=== PATIENT | female | born 1940 | race Caucasian/White ===

== ENCOUNTER 2016-07-23 10:35 | Emergency (ER) | payer MEDICARE, MEDICAID ==
[2016-07-23 10:52] VITALS: TEMP 95.8
[2016-07-23] MEDS ORDERED: SODIUM CHLORIDE 0.9% 1000ML 500 ML IVS ONE (10:57)
--- NOTE | 2016-07-23 12:52 | CT ---
EXAM DESCRIPTION: CT ABDOMEN PELVIS WITH IV CONTRAST CLINICAL HISTORY: gi bleed, rlq pain mild, known hernias COMPARISON: December 16, 2015 TECHNIQUE: CT of the abdomen and Pelvis was performed with IV contrast. FINDINGS: There is a small 3 or 4 mm noncalcified nodule in the right middle lobe, only partially visualized on the 1st image of this exam period the lung bases are otherwise unremarkable period there is a moderate to large sized hiatal hernia without acute complication, unchanged from the patient's previous CT. No gastric wall thickening or adjacent inflammation period no calcified gallstone. No dilated small bowel loops period there is a fat containing midline anterior abdominal wall hernia at or near the level of the umbilicus. The hernia sac measures 7 cm transverse diameter, and the hernia defect measures 2.2 cm transverse diameter. There is some mild inflammation or scarring involving herniated fat, but this is unchanged from the patient's previous CT. No herniated bowel loops are identified. There is no new hernia. Colonic diverticulosis is noted without diverticulitis. No calcified gallstone period there are few small round low-density liver lesions which are too small to characterize but likely represent cysts. The liver, spleen, pancreas, adrenals and kidneys are otherwise unremarkable period no suspicious bone lesion period IMPRESSION: Colonic diverticulosis, but no diverticulitis or other acute abnormality to explain patient's symptoms. Hiatal and midline anterior abdominal wall hernias as detailed above, stable from November,. Three or 4 mm noncalcified right middle lobe nodule only partially visualized. Nonemergent chest CT is suggested for further evaluation. Electronically signed by: Herb Peters DO 07/23/2016 12:50
--- NOTE | 2016-07-23 13:22 | ED.PDOC ---
History of Present Illness - General Chief Complaint: GI Problem Stated Complaint: rectal bleeding Time Seen by Provider: 07/23/16 10:46 Source: patient Exam Limitations: no limitations - History of Present Illness Initial Comments: the patient is a 76-year-old female presenting to the emergency room several hours after having had 3 bloody bowel movements. The first bowel movement had some solid stool with blood in it and the following bowel movements were apparently mainly liquid with just blood. Estimated blood loss is somewhere between 50 and 200 cc. The patient did not have any pain with the bowel movements. She has not had any hemorrhoids. The patient did get weak and diaphoretic and near syncopal that but did not pass out. She does feel weak now. No chest pain or palpitations. She apparently had a similar episode back in November 2015 and was scheduled to have a lower endoscopy with Dr. Staton , but was unable to complete the bowel prep due to nausea and vomiting and has not had that done. She has apparently not had any GI bleeding since that time until this morning. No injury yesterday. She denies being on any blood thinners with the exception of aspirin. No history of any bleeding disorders otherwise. On exam today she does have some mild right lower quadrant discomfort to palpation but not markedly. She reports her only abdominal surgery is a tubal ligation. She does have an umbilical hernia as well as a superior ventral hernia, neither of which are painful.. Timing/Duration: 4-6 hours Severity: moderate Improving Factors: nothing Worsening Factors: nothing Associated Symptoms: loss of appetite, malaise, weakness Allergies/Adverse Reactions: Allergies CI Pigment Blue 63 [From Cymbalta] Allergy (Unverified 01/16/13 08:04) Duloxetine [From Cymbalta] Allergy (Unverified 01/16/13 08:04) Procaine [From Novocain] Allergy (Unverified 01/15/13 16:04) Home Medications: Ambulatory Orders Atorvastatin Calcium [Lipitor] 40 mg PO DAILY 01/17/13 Esomeprazole Magnesium [Nexium] 40 mg PO DAILY 01/17/13 ALPRAZolam [Xanax] 0.5 mg PO PRN PRN 01/18/13 Promethazine Tab [Phenergan] 25 mg PO .Q4 PRN 01/18/13 Citalopram Hydrobromide [Celexa] 40 mg PO DAILY 02/12/14 Review of Systems - Review of Systems Constitutional: States: malaise, weakness EENTM: States: no symptoms reported Respiratory: States: no symptoms reported Cardiology: States: other - near syncope Gastrointestinal/Abdominal: States: diarrhea Genitourinary: States: no symptoms reported Musculoskeletal: States: no symptoms reported - chronic changes only Skin: States: no symptoms reported Neurological: States: other - near syncope Endocrine: States: no symptoms reported All other Systems: No Change from Baseline Past Medical History (General) - Patient Medical History Hx Seizures: No Hx Stroke: No Hx Asthma: No Hx of COPD: No Hx Cardiac Disorders: No Hx Congestive Heart Failure: No Hx Pacemaker: No Hx Hypertension: No Hx Diabetes: No Hx MRSA: No - Vaccination History Hx Influenza Vaccination: Yes Hx Pneumococcal Vaccination: Yes - Social History Hx Tobacco Use: No Hx Alcohol Use: No Hx Substance Use: No Hx Physical Abuse: No Hx Emotional Abuse: No Family Medical History - Family History Mother Family History: Unknown Living Status: Physical Exam - Physical Exam General Appearance: Alert, Comfortable, No apparent distress Eye Exam: bilateral normal Ears, Nose, Throat: normal ENT inspection, normal pharynx Neck: full range of motion, supple, normal inspection Respiratory: lungs clear, normal breath sounds, no respiratory distress, no accessory muscle use Cardiovascular/Chest: normal peripheral pulses, regular rate, rhythm, no edema Peripheral Pulses: radial,right: 2+, radial,left: 2+, dorsalis pedis,right: 2+, dorsalis pedis,left: 2+, posterior tibialis,right: 2+, posterior tibialis,left: 2+ Gastrointestinal/Abdominal: non tender - with the exception of mild right lower quadrant discomfort palpation. She additionally has the hernias as stated above. No pain to palpation in the hernias and the patient has been having good bowel movements and has not been having nausea or vomiting., soft Rectal Exam: other - no obvious hemorrhoids. No significant pain with the exam. No palpable mass. There is kelsi blood. 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 Hemoglobin and hematocrit are reassuring. Vital signs are reassuring. She has received a small IV fluid bolus. No evidence of continuation of the GI bleed at this time. 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 Transferring for specialty evaluation and higher level of care. - Results/Orders Results/Orders: 07/23/16 10:57 UA [URINALYSIS] Stat pending at this time \ Laboratory Results - last 24 hr 07/23/16 07/23/16 10:56 10:57 WBC 8.2 RBC 4.31 Hgb 12.3 Hct 37.7 MCV 87.6 MCH 28.5 MCHC 32.5 L RDW 13.6 Plt Count 212 MPV 8.7 Absolute Neuts (auto) 5.80 Absolute Lymphs (auto) 1.30 Absolute Monos (auto) 0.70 Absolute Eos (auto) 0.10 Absolute Basos (auto) 0.10 Neutrophils % 71.7 Lymphocytes % 16.4 L Monocytes % 8.5 Eosinophils % 1.8 Basophils % 1.6 PT 12.2 INR 1.080 PTT (SP) 32.8 D-Dimer, Quantitative < 230 Sodium 143 Potassium 4.0 Chloride 109 Carbon Dioxide 27 Anion Gap 11.0 L BUN 17 Creatinine 0.64 BUN/Creatinine Ratio 26.6 H Random Glucose 104 Serum Osmolality 286.8 Lactic Acid 1.2 Calcium 8.4 Total Bilirubin 0.5 AST 16 ALT 11 Alkaline Phosphatase 66 Creatine Kinase 39 CK-MB (CK-2) 1.9 CK-MB (CK-2) % Not Reportable Troponin I < 0.02 Serum Total Protein 6.9 Albumin 3.7 Globulin 3.2 Albumin/Globulin Ratio 1.2 Amylase [address] scan of abdomen and pelvis does not show any particular etiology for the GI bleed. There are small changes on the chest that need to be followed. Departure - Departure Clinical Impression: Near syncope GI bleeding Qualifiers: GI bleed type/associated pathology: unspecified gastrointestinal hemorrhage type Qualifier Code: (K92.2) Gastrointestinal hemorrhage, unspecified Disposition: Transfer to Hospital Home Medications: Ambulatory Orders Atorvastatin Calcium [Lipitor] 40 mg PO DAILY 01/17/13 Esomeprazole Magnesium [Nexium] 40 mg PO DAILY 01/17/13 ALPRAZolam [Xanax] 0.5 mg PO PRN PRN 01/18/13 Promethazine Tab [Phenergan] 25 mg PO .Q4 PRN 01/18/13 Citalopram Hydrobromide [Celexa] 40 mg PO DAILY 02/12/14 Transfer to Outside Facility - Transfer Information Accepting Provider:: dr kwan Accepting Facility: [facility] Reason for Transfer: required specialist not available
[2016-07-23 13:51] VITALS: BP 129/84; O2SAT 94
== END 2016-07-23 13:51 | disposition short-term general hospital (02) ==
LOC: ER 10:35
DX: K92.2 Gastrointestinal hemorrhage, unspecified (principal); R55 Syncope and collapse; Z88.8 Allergy status to other drugs, medicaments and biological substances; Z88.4 Allergy status to anesthetic agent
CPT/HCPCS: 36415; 74177; 80053; 82150; 82550; 82553; 83605; 83690; 84484; 85025; 85379; 85610; 85730; J7030

== ENCOUNTER → 2016-07-27 | Outpatient (CLI) | payer MEDICARE, MEDICAID | END | disposition home or self-care (01) | LOC: GMAJ 14:09 | PROVIDERS: ATTEND Family Medicine | DX: D64.9 Anemia, unspecified (principal) ==

== ENCOUNTER → 2016-12-06 | Outpatient (CLI) | payer MEDICARE, MEDICAID | END | disposition home or self-care (01) | LOC: GMAJ 14:35 | PROVIDERS: ATTEND Family Medicine | DX: D50.8 Other iron deficiency anemias (principal); E53.8 Deficiency of other specified B group vitamins; E03.9 Hypothyroidism, unspecified ==

== ENCOUNTER 2017-08-10 12:09 | Emergency (ER) | payer MEDICARE, MEDICAID ==
[2017-08-10 12:22] VITALS: TEMP 98.1
--- NOTE | 2017-08-10 12:53 | ED.PDOC ---
History of Present Illness - General Chief Complaint: GI Problem Stated Complaint: Rectal bleeding Time Seen by Provider: 08/10/17 12:28 Information Source: patient Exam Limitations: no limitations - History of Present Illness Initial Comments: Mónica Kingsley 77 y/o female stated had been having rectal bleeding started last night then had another one this am .Initial episode was last year 2016 was sent to [facility] had colonoscopy stating bleeding from veins but rectal bleeding had stopped.She had CT/Abd-pelvis showed colonic diverticuolsis but no other findings noted.Denies abdominal cramps,tenesmus,diarrhea,constipation, melena.Does not take anticoagulant or aspirin on daily basis.No dizziness, weakness. Abdominal Pain Onset Location: other - NONE Pain Radiation: no radiation Quality: waxing/waning Timing/Duration: 24 hours Improving Factors: nothing Worsening Factors: nothing Associated Symptoms: other - none Review of Systems - Review of Systems Constitutional: States: no symptoms reported EENTM: States: no symptoms reported Respiratory: States: no symptoms reported Gastrointestinal/Abdominal: States: see HPI All other Systems: Reviewed and Negative, No Change from Baseline Past Medical History (General) - Patient Medical History Hx Seizures: No Hx Stroke: No Hx Asthma: No Hx of COPD: No Hx Cardiac Disorders: Yes - High cholesterol Hx Congestive Heart Failure: No Hx Pacemaker: No Hx Hypertension: No Hx Thyroid Disease: No Hx Diabetes: No Hx Gastroesophageal Reflux: Yes Hx MRSA: No Hx Other PMH: Yes - fibromyalgia Surgical History: appendectomy, other - knees,orif-forearm,LE left fracture - Vaccination History Hx Influenza Vaccination: Yes - 2016 Hx Pneumococcal Vaccination: Yes - 2017 - Social History Hx Tobacco Use: No Hx Alcohol Use: No Hx Substance Use: No Hx Physical Abuse: No Hx Emotional Abuse: No - Activities of Daily Living Grooming Ability: Independent Eating (Feeding) Ability: Independent Toileting Ability: Independent - Female History Patient is a Female of Child Bearing Age (10 -59 yrs old): No Family Medical History - Family History Mother Family History: Unknown Living Status: Cause of : lung CA Hx Family Cancer: Yes - mom Physical Exam - Physical Exam General Appearance: Alert, Comfortable, No apparent distress Eyes, Ears, Nose, Throat Exam: normal ENT inspection Neck: non-tender, full range of motion, supple Respiratory: lungs clear, no respiratory distress Cardiovascular/Chest: normal peripheral pulses, regular rate, rhythm, no gallop , no murmur Peripheral Pulses: No deficit Gastrointestinal/Abdominal: normal bowel sounds, non tender, soft, no organomegaly, other - umbilical hernia Rectal Exam: normal rectal tone, other - bright red blood wirh blood clots Back Exam: no CVA tenderness, no vertebral tenderness Extremity: non-tender, no pedal edema, no calf tenderness Neurologic: alert, oriented x 3 Skin Exam: normal color, warm/dry Progress - Progress Progress: 08/10/17 13:01 Vital Signs - 8 hr 08/10/17 12:15 Temperature 98.1 F Pulse Rate [ 86 Left Radial] Respiratory 18 Rate Blood Pressure 107/66 [Right Arm] O2 Sat by Pulse 96 Oximetry - Results/Orders Results/Orders: Abnormal Lab Results 08/10/17 08/10/17 13:15 13:15 RBC 4.17 L Lymphocytes % 19.0 L BUN 19 H BUN/Creatinine Ratio 21.1 H 08/10/17 13:00 IV Care:Saline Lock per Protoc QSHIFT 08/10/17 13:02 stool [FECAL OCCULT BLOOD] Stat Laboratory Results - last 24 hr 08/10/17 08/10/17 08/10/17 13:15 13:15 13:15 WBC 7.8 RBC 4.17 L Hgb 12.1 Hct 36.4 MCV 87.3 MCH 29.0 MCHC 33.3 RDW 13.6 Plt Count 323 MPV 9.0 Absolute Neuts (auto) 5.30 Absolute Lymphs (auto) 1.50 Absolute Monos (auto) 0.70 Absolute Eos (auto) 0.20 Absolute Basos (auto) 0.10 Neutrophils % 68.1 Lymphocytes % 19.0 L Monocytes % 8.9 Eosinophils % 2.7 Basophils % 1.3 Sodium 139 Potassium 4.0 Chloride 106 Carbon Dioxide 25 Anion Gap 12.0 BUN 19 H Creatinine 0.90 BUN/Creatinine Ratio 21.1 H Random Glucose 93 Serum Osmolality 279.5 Calcium 8.8 Patient ABO/Rh A NEGATIVE Antibody Screen Negative Departure - Departure Clinical Impression: Rectal hemorrhage Time of Disposition: 14:17 Disposition: Transfer to Hospital Condition: Fair Departure Forms: Patient Portal Self Enrollment Referrals: Phillip Barton MD [Primary Care Provider] - 1-2 Weeks Home Medications: Ambulatory Orders Atorvastatin Calcium [Lipitor] 40 mg PO DAILY 01/17/13 ALPRAZolam [Xanax] 0.5 mg PO PRN PRN 01/18/13 Citalopram Hydrobromide [Celexa] 40 mg PO DAILY 02/12/14 Transfer to Outside Facility - Transfer Information Accepting Provider:: Hospitalist Accepting Facility: [facility] Reason for Transfer: required specialist not available - Manager Apple
[2017-08-10 15:57] VITALS: O2SAT 98
[2017-08-10 16:28] VITALS: BP 130/60
== END 2017-08-10 16:20 | disposition short-term general hospital (02) ==
LOC: ER 12:09
DX: K62.5 Hemorrhage of anus and rectum (principal); E78.00 Pure hypercholesterolemia, unspecified; K21.9 Gastro-esophageal reflux disease without esophagitis

== ENCOUNTER → 2017-08-23 | Outpatient (CLI) | payer MEDICARE, MEDICAID | LOC: GMAJ 15:18 | PROVIDERS: ATTEND Family Medicine | DX: K57.31 Diverticulosis of large intestine without perforation or abscess with bleeding (principal); R53.82 Chronic fatigue, unspecified; Z79.899 Other long term (current) drug therapy ==

== ENCOUNTER 2017-09-05 12:19 | Emergency (ER) | payer MEDICARE, MEDICAID ==
[2017-09-05 12:33] VITALS: TEMP 97.9
[2017-09-05] MEDS ORDERED: fentaNYL CITRATE INJ 50 MCG/ML AMP IV ONE (12:56)
--- NOTE | 2017-09-05 12:59 | ED.PDOC ---
History of Present Illness - General Chief Complaint: Upper Extremity Injury Stated Complaint: right arm pain Time Seen by Provider: 09/05/17 12:55 Source: patient, RN notes reviewed, Vital Signs reviewed Additional Information: 77 YEAR OLD WHITE FEMALE WITH HISTORY OF OSTEOPOROSIS MULTIPLE FRACTURES IN THE PAST FELL TODAY AND SUSTAINED INJURY TO THE RIGHT FORARM DENIES ANY OTHER TRAUMA - History of Present Illness Occurred: just prior to arrival Pain - Upper Extremity: moderate: Forearm, right Method of Injury: fell Improving Factors: immobilization Worsening Factors: movement Allergies/Adverse Reactions: Allergies Procaine [From Novocain] Allergy (Unverified 08/10/17 12:24) Other Causes her to pass out Duloxetine [From Cymbalta] Adverse Reaction (Unverified 08/10/17 12:23) Other Causes the room to spin Home Medications: Ambulatory Orders Atorvastatin Calcium [Lipitor] 40 mg PO DAILY 01/17/13 ALPRAZolam [Xanax] 0.5 mg PO BID PRN 01/18/13 Acetamin W/Cod #3 Tab [Tylenol w/CODEINE #3] 1 ea PO Q6HR PRN #40 tab 09/05/17 Levothyroxine Sodium 125 mcg PO DAILY 09/05/17 Pantoprazole Sodium 40 mg PO DAILY 09/05/17 Sertraline HCl 100 mg PO DAILY 09/05/17 Review of Systems - Review of Systems Constitutional: States: no symptoms reported EENTM: States: no symptoms reported Respiratory: States: no symptoms reported Cardiology: States: no symptoms reported Gastrointestinal/Abdominal: States: no symptoms reported Genitourinary: States: no symptoms reported Musculoskeletal: States: see HPI Skin: States: no symptoms reported, see HPI Neurological: States: no symptoms reported Endocrine: States: no symptoms reported Past Medical History (General) - Patient Medical History Hx Seizures: No Hx Stroke: No Hx Asthma: No Hx of COPD: No Hx Cardiac Disorders: Yes - High cholesterol Hx Congestive Heart Failure: No Hx Pacemaker: No Hx Hypertension: No Hx Thyroid Disease: No Hx Diabetes: No Hx Gastroesophageal Reflux: Yes Hx MRSA: No Surgical History: appendectomy - Vaccination History Hx Influenza Vaccination: Yes Hx Pneumococcal Vaccination: Yes - 2018 - Social History Hx Tobacco Use: No Hx Alcohol Use: No Hx Substance Use: No Hx Physical Abuse: No Hx Emotional Abuse: No Family Medical History - Family History Mother Family History: Unknown Living Status: Cause of : lung CA Hx Family Cancer: Yes - mom Physical Exam - Physical Exam General Appearance: Obvious distress Eyes, Ears, Nose, Throat Exam: PERRL/EOMI, normal ENT inspection, TMs normal Neck: non-tender, full range of motion, supple Cardiovascular/Respiratory: regular rate, rhythm, no M/R/G, normal peripheral pulses Abdominal Exam: non-tender, no organomegaly Back Exam: normal inspection, no CVA tenderness Shoulder Exam: normal inspection, non-tender Wrist Exam: asymmetry, bone tenderness, pain, soft tissue tenderness Procedures - Splinting Wrist Hand-Made Type: orthoglass Splint: wrist Pre-Proc Neuro Vasc Exam: normal Post-Proc Neuro Vasc Exam: normal, unchanged from pre-exam - Joint Reduction right wrist Conscious Sedation: No Reduction Attempts: 1 Progress: PROCEDURE CLOSED REDUCTION OF RIGHT COLLES FRACTURE SEDATION AND ANALGEIA PROVIDED WITH FENTANYL AND ZOFRAN BY TRACTION AND IMPACTION WAS CORRECTED AND DORIFLEXION WAS CORRECTED AFTER THE VOLAR SPLINT APPLICATION POST REDUCTION FILM SATISFACTORY PT WAS GIVEN CAST INSTRUCTIONS SHE WAS GIVEN A SLING AND ADVISED TO ELEVATE AND FOLLOW UP WITH ORTHO DR PHAM Departure - Departure Clinical Impression: Colles' fracture Disposition: Discharge to Home or Self Care Departure Forms: ED Discharge - Pt. Copy, Patient Portal Self Enrollment Instructions: DI for Arm Pain Referrals: Phillip Barton MD [Primary Care Provider] - 1-2 Weeks Home Medications: Ambulatory Orders Atorvastatin Calcium [Lipitor] 40 mg PO DAILY 01/17/13 ALPRAZolam [Xanax] 0.5 mg PO BID PRN 01/18/13 Acetamin W/Cod #3 Tab [Tylenol w/CODEINE #3] 1 ea PO Q6HR PRN #40 tab 09/05/17 Levothyroxine Sodium 125 mcg PO DAILY 09/05/17 Pantoprazole Sodium 40 mg PO DAILY 09/05/17 Sertraline HCl 100 mg PO DAILY 09/05/17
[2017-09-05] MEDS ORDERED: ONDANSETRON INJ 4 MG/2 ML VIAL IV ONE (13:13)
--- NOTE | 2017-09-05 13:30 | RAD ---
EXAM DESCRIPTION: Wrist,Right 3 Views CLINICAL HISTORY: 77 yearsFemale, pain, deformity COMPARISON: None. IMPRESSION: 3 views of the right wrist demonstrate an acute comminuted mildly displaced intra-articular fracture involving the distal radial metaphysis. Fracture line extends through the distal radial cortex into the radial scaphoid and radial lunate joint spaces. The remaining osseous structures appear intact. The bones are demineralized. 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 There is generalized soft tissue swelling in the wrist. Electronically signed by: Brady Luque MD 09/05/2017 1:29 PM CDT
--- NOTE | 2017-09-05 13:31 | RAD ---
EXAM DESCRIPTION: Forearm, right CLINICAL HISTORY: 77 yearsFemale, fall COMPARISON: None. IMPRESSION: 2 views of the right forearm demonstrate an acute comminuted intra-articular fracture involving the distal radial metaphysis and epiphysis. The remaining portions of the visualized right forearm appear intact. There is generalized soft tissue swelling in the wrist. The bones are demineralized. Electronically signed by: Brady Luque MD 09/05/2017 1:30 PM CDT
--- NOTE | 2017-09-05 14:11 | RAD ---
EXAM DESCRIPTION: Wrist,Right 3 Views CLINICAL HISTORY: 77 years, Female, post reduction COMPARISON: Previous study same day at time 1:07 PM FINDINGS: Right wrist 3 x-ray views shows fracture of the distal radius with transverse component through the metaphysis and a longitudinal component into the joint space. Alignment is improved compared to previous study. Mild dorsal angulation of the radial articular surface which is normally aligned with the lunate. Degenerative changes are seen in the carpus laterally with small cysts in the lunate and scaphoid. Carpal relationships are maintained. Distal ulna appears intact. Normal metacarpals. IMPRESSION: Fractured distal radius with improved alignment since previous study. Electronically signed by: Jaycob Arellano MD 09/05/2017 2:10 PM CDT
[2017-09-05 14:19] VITALS: BP 132/67; O2SAT 95
== END 2017-09-05 14:20 | disposition home or self-care (01) ==
LOC: ER 12:19
DX: S52.531A Colles' fracture of right radius, initial encounter for closed fracture (principal); M81.0 Age-related osteoporosis without current pathological fracture; E78.00 Pure hypercholesterolemia, unspecified; K21.9 Gastro-esophageal reflux disease without esophagitis; W19.XXXA Unspecified fall, initial encounter; Y92.9 Unspecified place or not applicable
CPT/HCPCS: 73090; 73110; J2405; J3010

== ENCOUNTER → 2017-09-21 | Outpatient (CLI) | payer MEDICARE, MEDICAID ==
--- NOTE | 2017-09-22 09:48 | RAD ---
EXAM DESCRIPTION: Wrist,Right 3 Views CLINICAL HISTORY: 77 years, Female, CLOSED FRACTURE OF DISTAL END OF RIGHT RADIUS COMPARISON: Previous study September 05, 2017 FINDINGS: Right wrist 3 x-ray views is positive for comminuted fracture of the distal radius with impaction and extension into the radiocarpal joint. Compared to previous study, dorsal tilt of the radial articular surface has increased from approximately 24 degrees to 33 degrees. On the oblique view, the dorsal radial fragment appears somewhat more proximally and dorsally displaced with a gap of 3-6 mm. Carpal relationships are well-maintained. Advanced degenerative changes of the lateral carpus are present. Distal ulna appears intact. Normal metacarpals. IMPRESSION: Impacted comminuted fracture of the distal right radius with change of alignment as described. Electronically signed by: Jaycob Arellano MD 09/22/2017 9:47 AM CDT
--- NOTE | 2017-09-22 09:52 | RAD ---
EXAM DESCRIPTION: Knee,Right Complete CLINICAL HISTORY: 77 years, Female, PAIN IN RIGHT KNEE COMPARISON: Previous study January 29, 2014 TECHNIQUE: Four views of the right knee FINDINGS: Wires are seen in the region of the patella. Broken wires are seen with increased gas superiorly compared to previous study. Bones appear osteopenic or osteoporotic. Normal appearance of medial and lateral compartments on frontal view. Lateral view shows chronically fractured patella with gap at the fracture site now measuring 2.5 cm compared to 1.8 cm in January 2014. No suprapatellar knee joint effusion. Thickened distal quadriceps tendon and proximal patellar tendon with erosive changes of the inferior patella. No abnormal patellar tilt or medial or lateral subluxation above the patella on patellar sunrise view. IMPRESSION: Chronic patellar fracture with nonunion. Increased gap at the patellar fracture site compared to January 2014. Electronically signed by: Jaycob Arellano MD 09/22/2017 9:50 AM CDT
--- NOTE | 2017-09-22 09:53 | RAD ---
EXAM DESCRIPTION: Pelvis CLINICAL HISTORY: 77 years Female, PAIN IN RIGHT HIP COMPARISON: None. TECHNIQUE: Single frontal x-ray view of hips and pelvis FINDINGS: Bones of the pelvic ring appear intact. Degenerative changes are seen at the SI joints. No fracture of the proximal femurs. Bones appear osteopenic. Sacrum appears intact. IMPRESSION: Negative for fracture. Electronically signed by: Jaycob Arellano MD 09/22/2017 9:51 AM CDT
== END ==
LOC: RAD 08:31
PROVIDERS: ATTEND Orthopaedic Surgery
DX: S52.501D Unspecified fracture of the lower end of right radius, subsequent encounter for closed fracture with routine healing (principal); S82.091K Other fracture of right patella, subsequent encounter for closed fracture with nonunion; M25.561 Pain in right knee; M25.551 Pain in right hip

== ENCOUNTER → 2017-10-09 | Outpatient (CLI) | payer MEDICARE, MEDICAID ==
--- NOTE | 2017-10-10 09:15 | RAD ---
EXAM DESCRIPTION: Wrist,Right 3 Views CLINICAL HISTORY: 77 years Female, CLOSED FRACTURE OF DISTAL END OF RADIUS RIGHT COMPARISON: September 21, 2017 FINDINGS: Three views of the right wrist show an old healed or healing distal right radial fracture with interval increase in degree of union from September 21, 2017. Minimal posterior angulation at the fracture site is unchanged from the previous exam. No new fracture. Again seen are degenerative changes involving the triscaphe and first CMC joints. Diffuse soft tissue swelling is also stable. IMPRESSION: Healed or healing distal right radial fracture as detailed above with interval increase in degree of union from September 21, 2017. No new abnormality or other significant interval change. Electronically signed by: Herb Peters MD 10/10/2017 9:13 AM CDT
== END ==
LOC: RAD 13:56
PROVIDERS: ATTEND Orthopaedic Surgery
DX: S52.501D Unspecified fracture of the lower end of right radius, subsequent encounter for closed fracture with routine healing (principal)

== ENCOUNTER 2017-10-10 05:39 | Day surgery (SDC) | payer MEDICARE, MEDICAID ==
[2017-10-10] MEDS ORDERED: LACTATED RINGERS 1,000 ML ONE (06:04)
[2017-10-10] MEDS ORDERED: SODIUM CHL 0.9% 100ML MINI-BAG 100 ML IVPB ONE (06:04)
[2017-10-10] MEDS ORDERED: ceFAZolin SODIUM 1 GM VIAL ONE ×2 (06:04→10:35)
[2017-10-10] MEDS ORDERED: MIDAZOLAM INJ 2 MG/2 ML VIAL ONE (09:53)
[2017-10-10] MEDS ORDERED: fentaNYL CITRATE INJ 50 MCG/ML AMP ONE (09:53)
[2017-10-10] MEDS ORDERED: PROPOFOL 200 MG/20 ML VIAL IV ONE (10:00)
[2017-10-10] MEDS ORDERED: LIDOCAINE 1% 10 ML VIAL INJ ONE (10:00)
[2017-10-10] MEDS ORDERED: BUPIVACAINE 0.25% INJ 30 ML VIAL INJ ONE (10:05)
[2017-10-10] MEDS ORDERED: VANCOMYCIN HCL INJ 1,000 MG VIAL IVPB ONE (10:35)
--- NOTE | 2017-10-10 11:09 | OP ---
DATE OF PROCEDURE: 10/10/17 PREOPERATIVE DIAGNOSIS: 1. Symptomatic hardware of the right knee. POSTOPERATIVE DIAGNOSIS: 1. Symptomatic hardware of right knee. PROCEDURE: 1. Removal of hardware. SURGEON: Pascual Vasquez MD. MORTGAGE SPECIALIST: Jayce Bautista CST, SA-C. ANESTHESIA: Local with sedation. COMPLICATIONS: None. FINDINGS: Prominent hardware on the medial aspect of the knee. INDICATION: Ms. Kingsley has a history of open reduction internal fixation of her patella fracture. This was several years ago. She did well from that, however, began having issues with the hardware. Because of that, she requested operative intervention. After discussing the risks, benefits and alternatives to that, she gave informed consent for that. PROCEDURE: The patient was brought to the Operating Room and placed in supine position. Sedation was administered and local anesthetic was injected into the operative area. Following that, the leg was sterilely prepped and draped. Following prepping and draping, an incision was made directly over the symptomatic hardware. Blunt dissection was carried down to the symptomatic hardware and it was removed. Following removal, fluoroscopic imaging was used to confirm complete removal of the wire. The wound was then irrigated, closed and sterile dressings were placed. The patient was then taken to the Day Surgery Unit. POSTOPERATIVE INSTRUCTIONS: The patient will followup with us in 2 days. #[id number] [facility]
[2017-10-10 13:55] VITALS: BP 122/68; TEMP 97.1; O2SAT 95
== END 2017-10-10 12:15 | disposition home or self-care (01) ==
LOC: AMB 05:39
PROVIDERS: ATTEND Orthopaedic Surgery
DX: Z47.2 Encounter for removal of internal fixation device (principal); K21.9 Gastro-esophageal reflux disease without esophagitis; Z88.6 Allergy status to analgesic agent; Z88.8 Allergy status to other drugs, medicaments and biological substances; Z79.899 Other long term (current) drug therapy
CPT/HCPCS: 01400; 20680; 80048; 85025; 87070; J0690; J2250; J3010; J3370; J3490; J7050; J7120

== ENCOUNTER → 2017-11-05 | Outpatient (CLI) | payer MEDICARE, MEDICAID | LOC: GMAJ 11:34 | PROVIDERS: ATTEND Family Medicine | DX: E03.9 Hypothyroidism, unspecified (principal) ==

== ENCOUNTER → 2017-11-08 | Outpatient (CLI) | payer MEDICARE, MEDICAID ==
--- NOTE | 2017-11-08 11:09 | RAD ---
EXAM DESCRIPTION: Wrist,Right 3 Views CLINICAL HISTORY: CLOSED FX DISTAL END OF RADIUS COMPARISON: 09 Oct 2017 TECHNIQUE: 3 views right FINDINGS: Diffuse osteopenia is observed. An impacted fracture of the distal radius is noted. Mild radial side carpal arthritis is observed degenerative changes are observed in the metacarpal carpal articulation of the first digit. There is slight dorsal angulation of the distal fracture fragments. Soft tissue swelling is observed. Alignment is unchanged when compared to the previous exam. Minimal callus formation is observed at the fracture site. IMPRESSION: Impacted dorsally angulated fracture of the distal radius with minimal callus formation. Electronically signed by: Colin Beltrán MD 11/08/2017 11:08 AM CDT
== END ==
LOC: RAD 08:48
PROVIDERS: ATTEND Orthopaedic Surgery
DX: S52.501D Unspecified fracture of the lower end of right radius, subsequent encounter for closed fracture with routine healing (principal)

== ENCOUNTER → 2018-11-08 | Outpatient (CLI) | payer MEDICARE, MEDICAID | LOC: GMAJ 12:39 | PROVIDERS: ATTEND Family Medicine | DX: R53.82 Chronic fatigue, unspecified (principal) ==

== ENCOUNTER → 2018-11-14 | Outpatient (CLI) | payer MEDICARE, MEDICAID | LOC: MRI 14:00 | PROVIDERS: ATTEND Family Medicine | DX: G93.9 Disorder of brain, unspecified (principal) ==

== ENCOUNTER → 2019-04-01 | Outpatient (CLI) | payer MEDICARE, MEDICAID | LOC: GMAL 16:17 | PROVIDERS: ATTEND Family Medicine | DX: R53.83 Other fatigue (principal); E78.00 Pure hypercholesterolemia, unspecified ==

== ENCOUNTER → 2019-04-10 | Outpatient (CLI) | payer MEDICARE, MEDICAID ==
--- NOTE | 2019-04-04 15:23 | MRI ---
EXAM DESCRIPTION: Cervical Spine: MRI. CLINICAL HISTORY: 78 years Female CERVICALGIA NECK PAIN COMPARISON: Cervical spine radiographs 01 April 2019. TECHNIQUE: Multiplanar, high-field MRI, multiple sequences, non-contrast Cervical spine. FINDINGS: C3-C4: Disc desiccation with disc space maintained. Tiny posterior midline bulge. Small bilateral uncinate spurs. Mild bilateral neural foraminal narrowing. Facet joints unremarkable. Minimal canal narrowing. C4-C5: Disc desiccation anterior right larger bulge with endplate ridging. Minimal disc space loss. Mild bilateral facet arthrosis. No posterior bulge. Mild left neural foraminal narrowing and moderate right neural foraminal narrowing. Minimal bilateral facet arthrosis. Mild canal narrowing. C5-C6: Disc desiccation and minimal disc space loss. Posterior broad-based bulge. Left intraforaminal bulge or focal protrusion with left neural foramen nearly stenotic. Mild narrowing of the canal and right neuroforamen. C6-C7: Disc desiccation minimal disc space loss with no posterior bulging. Facet joints unremarkable. 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 Otherwise no foramina are unremarkable. C7-T1: Disc desiccation with disc space maintained. Minimal anterior bulging. Posterior elements unremarkable. Canal and neural foramina are patent. Normal signal in the C2-C3 disc with no bulging. Disc space preserved. Canal and neural foramina are patent. Facet joints negative. Spinal alignment reduced lordosis.. No cord compression or cord edema. Atlantoaxial joint unremarkable. Base of the cerebellar tonsils is above the foramen magnum. Paravertebral soft tissues negative. Vertebral bodies are not compressed at any level. Otherwise normal marrow signal in the remaining vertebral bodies and the posterior elements. IMPRESSION: 1. Tiny posterior midline bulge C3-C4 and minimal canal narrowing. Mild neural foraminal narrowing. 2. C4-5 Disc desiccation and bulge. Bilateral facet arthrosis and neural foraminal narrowing. 3. C5-C6 left intraforaminal disc protrusion with near stenosis. The disc may be abutting the exiting left C6 nerve. 4. Narrowing of the left neural foramen at C6-C7 due to perineural cyst. Electronically signed by: Jayce Aleman MD 04/04/2019 3:21 PM RN RECOVERY
--- NOTE | 2019-04-11 10:11 | MRI ---
EXAM DESCRIPTION: Lumbar Spine w/o Contrast : Magnetic Resonance Imaging. CLINICAL HISTORY: SPINAL STENOSIS LUMBAR REGION COMPARISON: 3 views lumbar spine 01 April 2019. TECHNIQUE: Multiplanar, multiple standard sequences, non contrast MRI, lumbar spine. FINDINGS: L5-S1: The disc is well visualized on axial T2 series 501, image 3. LUMBAR disc desiccation and minimal disc space loss. Tiny posterior bulge. Hyperintense T2-weighted annular fissure in the left posterior margin abutting the exiting left L5 nerve. Mild left foraminal narrowing. Mild right foraminal narrowing. Bilateral mild hypertrophic facet arthrosis and thickening of the ligaments. AP canal diameter 13 mm. L4-L5: Disc desiccation and minimal disc space loss. Posterior midline disc margin hyperintense T2 annular fissure. Tiny posterior bulge. Bilateral facet hypertrophic arthrosis and thickening of the ligaments. AP canal diameter 11 mm. Mild narrowing left foramen and mild to moderate narrowing right foramen. L3-L4: Disc desiccation with no disc space loss. Trace retrolisthesis. No significant bulging. Minimal bilateral facet hypertrophic arthrosis and ligament thickening. No significant canal narrowing. Mild narrowing of the bilateral foramina. Hyperintense T1 and T2 circumscribed hemangiomas in the L3 and L4 vertebral bodies. L2-L3: Disc desiccation and disc space loss. Anterior disc bulging with endplate reaction. 2 mm retrolisthesis. Posterior ligaments with minimal thickening. Mild canal narrowing. Mild left foraminal narrowing and mild to moderate right foraminal narrowing. L1-L2: Disc space maintained with normal signal in the disc. Minimal thickening of the posterior ligaments. Canal and foramina are patent. Circumscribed hyperintense T1 and T2 hemangioma inferior L1. T12-L1: Disc desiccation with Schmorl's node superior L1 endplate. No significant bulging. Posterior elements unremarkable. Canal and foramina are patent. Conus terminates at this level. No scoliosis. Paravertebral soft tissues Paraspinal muscle atrophy.. Distal cord normal signal and caliber. Otherwise normal marrow signal in the remaining vertebral bodies and the posterior elements. Vertebral bodies are not compressed at any level. IMPRESSION: 1. Multiple levels of hypertrophic facet arthropathy and posterior flavum ligament thickening contributing to canal narrowing. Minimal spondylolisthesis at some levels. 2. L5-S1 disc bulge into the left foramen with annular fissure abutting the exiting left L5 nerve. Canal narrowing. 3. Disc bulge and posterior hypertrophic elements contributing to moderate canal narrowing at L4-5 and moderate right foraminal narrowing. Electronically signed by: Jayce Aleman MD 04/11/2019 10:10 AM [facility]
== END ==
LOC: MRI 04-04 07:00
PROVIDERS: ATTEND Family Medicine
DX: M50.91 Cervical disc disorder, unspecified, high cervical region (principal); M50.921 Unspecified cervical disc disorder at C4-C5 level; M50.922 Unspecified cervical disc disorder at C5-C6 level; G96.19 Other disorders of meninges, not elsewhere classified; M43.16 Spondylolisthesis, lumbar region; M51.86 Other intervertebral disc disorders, lumbar region; M51.87 Other intervertebral disc disorders, lumbosacral region

== ENCOUNTER → 2019-05-26 | Outpatient (CLI) | payer MEDICARE, MEDICAID ==
--- NOTE | 2019-05-26 20:23 | CT ---
PROCEDURE: Abdomen/Pelvis w/Contrast CLINICAL HISTORY: LLQ PAIN TECHNIQUE: Contiguous axial images obtained through the abdomen and pelvis following the uneventful administration of IV contrast. Coronal and sagittal reformatted images were provided. This exam was performed according to our departmental dose-optimization program, which includes automated exposure control, adjustment of the mA and/or kV according to patient size and/or use of iterative reconstruction technique. COMPARISON: 10/16/2018 FINDINGS: Lung bases: Minimal left basilar subsegmental atelectasis/pleural parenchymal scar. Mild subpleural nodularity again demonstrated on the right. The heart is mildly enlarged. Coronary artery and mitral annular calcification. Large hiatal hernia containing the entire stomach again demonstrated. Liver: Scattered subcentimeter hepatic hypodensities without significant interval change and which are too small to characterize. Gallbladder and biliary system: Unremarkable Pancreas: Unremarkable Spleen: Unremarkable Adrenals: Unremarkable Kidneys: Normal renal cortical enhancement. No calculi. No hydronephrosis. Bowel: Duodenal diverticula. Colonic diverticula are present. The proximal to mid sigmoid colon appears somewhat thickened. Minimal infiltrative changes within the pericolonic fat. No obstruction. Appendix: The appendix is not definitively visualized. No findings to suggest acute appendicitis. Urinary bladder: The urinary bladder is partially decompressed. Small nondependent gas foci. Mild circumferential urinary bladder wall thickening. Reproductive: Postmenopausal uterus demonstrated. There is a tract with a focus of gas abutting the left uterine fundus and which appears contiguous with the adjacent sigmoid colon. Lymph nodes: No pathologically enlarged lymph nodes. Peritoneum: No focal fluid collection. No free air. Vessels: Mild to moderate atherosclerotic disease. No abdominal aortic aneurysm. Abdominal wall: Moderate to large fat-containing periumbilical hernia without significant interval change. Bones: Multilevel spondylosis. No acute fracture. IMPRESSION: 1. Findings suggestive of acute diverticulitis at the proximal to mid sigmoid colon. Mild surrounding inflammation. There is a tract with a focus of gas abutting the left uterine fundus in which appears contiguous with the adjacent sigmoid colon. Underlying fistula or potentially developing abscess in the setting of contained perforation cannot be excluded. 2. Mild circumferential urinary bladder wall thickening. This may in part be related to degree of distention. Please correlate clinically for cystitis. Nondependent gas foci which may be related to recent instrumentation. The possibility of intramural gas is not excluded. 3. Other findings as above. THIS REPORT CONTAINS FINDINGS THAT MAY BE CRITICAL TO PATIENT CARE: The findings were verbally discussed via telephone conference with Dr. Nataly San on 05/26/2019 8:18 PM DIRECTOR CASE MANAGEMENT. The results were acknowledged and understood. Electronically signed by: Aly Johnson MD 05/26/2019 8:21 PM DIRECTOR CASE MANAGEMENT
== END ==
LOC: CT 18:21
PROVIDERS: ATTEND Nurse Practitioner Acute Care
DX: K52.9 Noninfective gastroenteritis and colitis, unspecified (principal); N32.9 Bladder disorder, unspecified

== ENCOUNTER → 2019-06-12 | Outpatient (CLI) | payer MEDICARE, MEDICAID ==
--- NOTE | 2019-06-17 10:10 | RAD ---
EXAM DESCRIPTION: Shoulder,Right 2 or More Views CLINICAL HISTORY: 79 years Female, PAIN IN RIGHT SHOULDER COMPARISON: None. FINDINGS: Four views of the right shoulder show no acute fracture or malalignment. The glenohumeral joint space is well maintained. Mild degenerative changes in the right AC joint without undersurface spurring. The soft tissues are unremarkable. IMPRESSION: Mild degenerative changes in the right AC joint, otherwise unremarkable exam. Electronically signed by: Herb Peters MD 06/12/2019 11:[address] [facility]
--- NOTE | 2019-06-17 10:11 | RAD ---
EXAM DESCRIPTION: Shoulder,Left 2 or More Views CLINICAL HISTORY: 79 years Female, PAIN IN LEFT SHOULDER COMPARISON: None. FINDINGS: Four views of the left shoulder show no acute fracture or malalignment. No glenohumeral joint space narrowing. Mild degenerative changes in the left AC joint without undersurface spurring. Tiny circumscribed lucencies in the left humeral head may be partially related to ghost tracks from previously removed orthopedic hardware. Question small subcortical cyst superior laterally in the left humeral head. IMPRESSION: Mild degenerative changes in the left AC joint without acute left shoulder abnormality. Possible small subcortical cyst superior laterally in the left humeral head also likely degenerative. Electronically signed by: Herb Peters MD 06/12/2019 11:32 AM [facility] [place]
== END ==
LOC: RAD 09:00
PROVIDERS: ATTEND Orthopaedic Surgery
DX: M19.011 Primary osteoarthritis, right shoulder (principal); M19.012 Primary osteoarthritis, left shoulder; M85.612 Other cyst of bone, left shoulder

== ENCOUNTER 2019-06-15 17:47 | Emergency (ER) | payer MEDICARE, MEDICAID ==
[2019-06-15] MEDS ORDERED: MORPHINE SULFATE INJ 10 MG/ML VIAL ONE (17:54)
[2019-06-15] MEDS ORDERED: ONDANSETRON INJ 4 MG/2 ML VIAL ONE (17:54)
[2019-06-15] MEDS ORDERED: MORPHINE SULFATE INJ 10 MG/ML VIAL IV ONE (17:58)
[2019-06-15] MEDS ORDERED: ONDANSETRON INJ 4 MG/2 ML VIAL IV ONE (17:58)
[2019-06-15] MEDS ORDERED: ASPIRIN TABLET 325 MG TAB PO ONE (17:58)
--- NOTE | 2019-06-15 18:03 | ED.PDOC ---
History of Present Illness - General Stated Complaint: chest pain Time Seen by Provider: 06/15/19 17:56 Source: patient, RN notes reviewed, Vital Signs reviewed, family Additional Information: this is 79 year old female with hx of chronic nausea and vomiting, paitent presents to the er because of chest pain stated that while they were watching tv, she started vomiting, which is not unusual for her since she had gi issues for the past 3 years but then she grabbed her chest and was stating the pain was going up her neck no previous hx of RI or coronary artery disease, patient looks uncomfortable and grabbing her chest patient stated that the pain comes in wasves - History of Present Illness Timing/Duration: 1 hour Severity/Quality: severe Location: substernal, shoulder Chest Pain Radiation: neck Activities at Onset: none Prior Chest Pain/Cardiac Workup: no prior chest pain Improving Factors: nothing Worsening Factors: nothing Nitro Today/Relief: no nitro taken today Aspirin Treatment Today: no aspirin today Associated Symptoms: denies symptoms Allergies/Adverse Reactions: Allergies Procaine [From Novocain] Allergy (Verified 10/10/18 16:00) Other Causes her to pass out Duloxetine [From Cymbalta] Adverse Reaction (Verified 10/10/18 16:00) Other Causes the room to spin Home Medications: Ambulatory Orders Atorvastatin Calcium [Lipitor] 40 mg PO DAILY 01/17/13 ALPRAZolam [Xanax] 0.5 mg PO BID PRN 01/18/13 Levothyroxine Sodium 0.137 mcg PO DAILY 09/05/17 Pantoprazole Sodium 40 mg PO DAILY 09/05/17 Sertraline HCl [Sertraline Hydrochloride] 100 mg PO DAILY 09/05/17 Buspirone HCl [Buspirone Hydrochloride] 5 mg PO TID 10/11/18 Denosumab [Prolia] 60 mg SC .Q 6 MOS 10/11/18 Levofloxacin 750 mg PO DAILY 7 Days #7 tablet 10/12/18 guaiFENesin ER TAB [Mucinex Tab] 600 mg PO BID 7 Days #14 tab 10/12/18 predniSONE See Taper PO DAILY #30 tab 10/12/18 Review of Systems - Review of Systems Constitutional: Denies: chills, diaphoresis, fever, malaise EENTM: Denies: see HPI, eye pain, blurred vision, tearing, double vision, ear pain, ear discharge, nose pain, nose congestion, throat pain, throat swelling, mouth pain, mouth swelling Respiratory: Denies: cough, orthopnea, short of breath, stridor, wheezing Cardiology: States: chest pain. Denies: edema, palpitations, syncope Gastrointestinal/Abdominal: Denies: abdominal pain, constipation, diarrhea, nausea, vomiting Genitourinary: Denies: discharge, dysuria, frequency, hematuria Musculoskeletal: Denies: back pain, gout, joint pain, joint swelling, muscle pain, muscle stiffness, neck pain Skin: Denies: change in color, change in hair/nails, dryness, lesions, lumps, rash, other Neurological: Denies: depressed, emotional problems, headache, numbness, paresthesia, pre-existing deficit, seizure, tingling, tremors, weakness Endocrine: States: no symptoms reported. Denies: flushing, intolerance to cold, intolerance to heat, increased hunger, increased thirst, increased urine, unexplained weight gain, unexplained weight loss Hematologic/Lymphatic: Denies: anemia, blood clots, easy bleeding, easy bruising, swollen glands Past Medical History (General) - Patient Medical History Hx Seizures: No Hx Stroke: No Hx Asthma: No Hx of COPD: No Hx Cardiac Disorders: Yes - High cholesterol Hx Congestive Heart Failure: No Hx Pacemaker: No Hx Hypertension: No Hx Thyroid Disease: No Hx Diabetes: No Hx Gastroesophageal Reflux: Yes Hx MRSA: No - Vaccination History Hx Influenza Vaccination: Yes Hx Pneumococcal Vaccination: Yes - Social History Hx Tobacco Use: No Hx Alcohol Use: No Hx Substance Use: No Hx Physical Abuse: No Hx Emotional Abuse: No Family Medical History - Family History Mother Family History: Unknown Living Status: Cause of : lung CA Hx Family Cancer: Yes - mom Physical Exam - Physical Exam General Appearance: Anxious, Restless Eyes, Ears, Nose, Throat Exam: PERRL/EOMI, normal ENT inspection, TMs normal, pharynx normal Neck: non-tender, full range of motion, supple, normal inspection Respiratory: chest non-tender, lungs clear, normal breath sounds, no respiratory distress, no accessory muscle use Cardiovascular/Chest: normal peripheral pulses, regular rate, rhythm, no edema, no gallop, no JVD, no murmur Peripheral Pulses: radial,right: 2+, radial,left: 2+ Gastrointestinal/Abdominal: normal bowel sounds, non tender, soft, no organomegaly, no pulsatile mass Extremity: normal range of motion, non-tender, normal inspection, no pedal edema, no calf tenderness 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 patient will be work up for acute coronary syndrome and dissection 06/15/19 20:46 patient cta was negative for PE or dissection, patient hemoglobin was 7.2, I was able to speak with hospitalist and she recomendation was to transfer patient to a higher level of care since we do not have gastro available and patient has had a long history of gi bleeding. patient refused to be transfer and she stated that she wants to stay here the hospitalist knows her well Nataly Truong will come in and try and talk to her and convince her to accept the transfer Departure - Departure Clinical Impression: Chest pain Qualifiers: Chest pain type: unspecified Qualified Code(s): R07.9 - Chest pain, unspecified Anemia Qualifiers: Anemia type: iron deficiency Iron deficiency anemia type: chronic blood loss Qualified Code(s): D50.0 - Iron deficiency anemia secondary to blood loss (chronic) GI bleed Qualifiers: GI bleed type/associated pathology: unspecified gastrointestinal hemorrhage type Qualified Code(s): K92.2 - Gastrointestinal hemorrhage, unspecified Disposition: Transfer to Hospital Condition: Fair Referrals: Phillip Barton MD [Primary Care Provider] - 1-2 Weeks Home Medications: Ambulatory Orders Atorvastatin Calcium [Lipitor] 40 mg PO DAILY 01/17/13 ALPRAZolam [Xanax] 0.5 mg PO BID PRN 01/18/13 Levothyroxine Sodium 0.137 mcg PO DAILY 09/05/17 Pantoprazole Sodium 40 mg PO DAILY 09/05/17 Sertraline HCl [Sertraline Hydrochloride] 100 mg PO DAILY 09/05/17 Buspirone HCl [Buspirone Hydrochloride] 5 mg PO TID 10/11/18 Denosumab [Prolia] 60 mg SC .Q 6 MOS 10/11/18 Levofloxacin 750 mg PO DAILY 7 Days #7 tablet 10/12/18 guaiFENesin ER TAB [Mucinex Tab] 600 mg PO BID 7 Days #14 tab 10/12/18 predniSONE See Taper PO DAILY #30 tab 10/12/18 Transfer to Outside Facility - Transfer Information Decision to Transfer Date: 06/15/19 Decision to Transfer Time: 20:57 Reason for Transfer: required specialist not available
--- NOTE | 2019-06-15 18:44 | RAD ---
EXAM: Chest,1 View CLINICAL INDICATION: Chest pain COMPARISON: 10/12/2018 FINDINGS: A single view of the chest was obtained. The heart size is normal. The pulmonary vascularity is unremarkable. The left hemidiaphragm is elevated. There is mild atelectasis in the left lung base. The lungs are otherwise clear. There is no pneumothorax. IMPRESSION: Mild atelectasis in the left lung base. Otherwise, no acute process in the chest. Electronically signed by: Walker Gonsalez MD 06/15/2019 6:43 PM [facility]
--- NOTE | 2019-06-15 20:28 | CT ---
EXAM: CTA chest with contrast CLINICAL INDICATION: Chest pain, abdomen pain, rule out dissection COMPARISON: 05/26/2019. TECHNIQUE: CTA of the chest was performed using contiguous axial 2.5mm postcontrast sections through the chest including IV contrast with 3-D reconstructions with 5 mm postcontrast sections continued through the abdomen and pelvis. This exam was performed according to our departmental dose-optimization program, which includes automated exposure control, adjustment of the mA and/or kV according to patient size and/or use of iterative reconstruction technique. FINDINGS: Images of the chest reveal no evidence of pulmonary embolism. There is no aortic dissection. A large hiatal hernia is noted. There are no enlarged mediastinal or hilar lymph nodes. There is mild bibasilar dependent subsegmental atelectasis. The lungs are otherwise clear. There is no pneumothorax. Images through the abdomen and pelvis reveal that the liver contains a few tiny less than 1 cm cyst but otherwise appear normal. The adrenal glands, spleen, pancreas, gallbladder, and kidneys have a normal CT appearance. The aorta is normal in caliber. There is a fat-containing anterior abdominal wall hernia. Diverticulosis of the colon is noted with mild inflammation adjacent to the sigmoid colon in the left hemipelvis consistent with mild acute diverticulitis. There is no abscess or free air. There are no dilated loops of small bowel. IMPRESSION: 1. No evidence of aortic dissection. 2. Diverticulosis with findings consistent with mild acute diverticulitis in the left hemipelvis. 3. Large hiatal hernia. Electronically signed by: Walker Gonsalez MD 06/15/2019 8:26 PM [employer]TER [employer]
[2019-06-15 23:01] VITALS: TEMP 97.9
[2019-06-15] MEDS ORDERED: HYDROmorphone HCL INJ 2 MG/ML VIAL IV ONE (23:04)
[2019-06-15 23:46] VITALS: BP 125/56; O2SAT 92
== END 2019-06-16 00:15 | disposition short-term general hospital (02) ==
LOC: ER 17:47
DX: R07.9 Chest pain, unspecified (principal); D50.0 Iron deficiency anemia secondary to blood loss (chronic); K92.2 Gastrointestinal hemorrhage, unspecified; R11.10 Vomiting, unspecified; E78.00 Pure hypercholesterolemia, unspecified; K21.9 Gastro-esophageal reflux disease without esophagitis; Z79.899 Other long term (current) drug therapy; Z88.8 Allergy status to other drugs, medicaments and biological substances
CPT/HCPCS: 71045; 71275; 74177; 80053; 82270; 83880; 84484; 85025; 85379; 93005; J1170; J2270; J2405

== ENCOUNTER 2019-07-22 | Inpatient (IN) | payer MEDICARE, MEDICAID | END 2019-07-24 22:06 | disposition short-term general hospital (02) | DRG 378 | PROVIDERS: ADMIT Nurse Practitioner Acute Care | PROC: 30233N1 Transfusion of Nonautologous Red Blood Cells into Peripheral Vein, Percutaneous Approach (ICD-10-PCS; principal; 2019-07-23) | DX: K57.31 Diverticulosis of large intestine without perforation or abscess with bleeding (principal); I69.359 Hemiplegia and hemiparesis following cerebral infarction affecting unspecified side; D62 Acute posthemorrhagic anemia; E78.5 Hyperlipidemia, unspecified; K21.9 Gastro-esophageal reflux disease without esophagitis; M81.0 Age-related osteoporosis without current pathological fracture; E03.9 Hypothyroidism, unspecified; M79.7 Fibromyalgia; M51.36 Other intervertebral disc degeneration, lumbar region; M50.30 Other cervical disc degeneration, unspecified cervical region; Z88.8 Allergy status to other drugs, medicaments and biological substances; D50.9 Iron deficiency anemia, unspecified ==

== ENCOUNTER → 2020-02-25 | Outpatient (CLI) | payer MEDICARE, MEDICAID | LOC: GMAJ 15:18 | PROVIDERS: ATTEND Family Medicine | DX: E03.8 Other specified hypothyroidism (principal); E78.2 Mixed hyperlipidemia ==